=== PATIENT | female | born 1985 | race Caucasian/White ===

== ENCOUNTER → 2017-08-01 | Outpatient (CLI) | payer OTHER ==
--- NOTE | 2017-08-01 10:02 | RAD ---
INDICATION: ASTHMA COMPARISON: None. FINDINGS: 2 views of chest obtained. No definite focal airspace consolidation. There are some probable calcified granulomas. Cardiac silhouette is not enlarged. IMPRESSION: No focal airspace consolidation or edema.
== END | disposition home or self-care (01) ==
LOC: RAD 08:50
PROVIDERS: ATTEND Internal Medicine Pulmonary Disease
DX: J45.909 Unspecified asthma, uncomplicated (principal)
CPT/HCPCS: 71020